=== PATIENT | female | born 1955 | race African-American/Black ===

== ENCOUNTER 2021-03-10 14:50 | Emergency (ER) | payer MEDICARE, OTHER ==
[~2021-03-10] VITALS: Ht 167.6 cm; Wt 68.0 kg
[2021-03-10] MEDS ORDERED: FLONASE ALLERG9.9 ML INH (15:08)
[2021-03-10] MEDS ORDERED: AUGMENTIN 875-1 EACH PO (15:08)
[2021-03-10] MEDS ORDERED: ALLEGRA-D 12 H1 EACH PO (15:08)
== END 2021-03-10 15:14 | disposition home or self-care (01) ==
LOC: FSED 14:55
DX: J32.9 Chronic sinusitis, unspecified (principal); H66.91 Otitis media, unspecified, right ear; I10 Essential (primary) hypertension; E11.9 Type 2 diabetes mellitus without complications; F17.200 Nicotine dependence, unspecified, uncomplicated
CPT/HCPCS: 99282

== ENCOUNTER 2021-04-08 15:34 | Emergency (ER) | payer MEDICARE, OTHER ==
[~2021-04-08] VITALS: Ht 167.6 cm; Wt 73.0 kg
[~2021-04-08 15:34] MED LIST: ALLEGRA-D 12 H1 EACH PO; AUGMENTIN 875-1 EACH PO; FLONASE ALLERG9.9 ML INH
[2021-04-08] MEDS ORDERED: AZITHROMYCIN250 MG PO (17:16)
== END 2021-04-08 17:32 | disposition home or self-care (01) ==
LOC: FSED 15:56
DX: H83.2X1 Labyrinthine dysfunction, right ear (principal); E11.9 Type 2 diabetes mellitus without complications; J44.9 Chronic obstructive pulmonary disease, unspecified; K21.9 Gastro-esophageal reflux disease without esophagitis; F17.210 Nicotine dependence, cigarettes, uncomplicated
CPT/HCPCS: 99282